=== PATIENT | female | born 1980 | race Caucasian/White ===

== ENCOUNTER 2020-10-13 13:13 | Emergency (ER) | payer SELFPAY ==
[2020-10-13] MEDS ORDERED: NAPROXEN500 MG PO (14:52)
[2020-10-13] MEDS ORDERED: NORFLEX 100 MG100 MG PO (14:52)
[2020-10-13] MEDS ORDERED: ENDOCET 5-3251 EACH PO (15:29)
== END 2020-10-13 14:58 | disposition home or self-care (01) ==
LOC: ER1 13:13
DX: S43.102A Unspecified dislocation of left acromioclavicular joint, initial encounter (principal); S30.0XXA Contusion of lower back and pelvis, initial encounter; Z88.8 Allergy status to other drugs, medicaments and biological substances; W01.0XXA Fall on same level from slipping, tripping and stumbling without subsequent striking against object, initial encounter; Y92.009 Unspecified place in unspecified non-institutional (private) residence as the place of occurrence of the external cause
CPT/HCPCS: 72100; 73030; 99283